=== PATIENT | female | born 1970 | race Caucasian/White ===

== ENCOUNTER 2020-11-05 14:09 | Emergency (ER) | payer OTHER, SELFPAY ==
[2020-11-05 15:03] VITALS: BP 136/83; PULSE 72; RESP 16; TEMP 36.6; O2SAT 97; BMI 23.0
--- NOTE | 2020-11-05 15:06 | ED.BACK ---
HPI - Back Pain/Injury General Chief Complaint: Back Pain/Injury Stated Complaint: back pain, work injury Time Seen by Provider: 11/05/20 15:04 Source: patient Mode of arrival: wheelchair Limitations: no limitations History of Present Illness HPI Narrative: 50 y/o female presenting with acute onset of left lower back pain that started after she lifted heavy object while at work today. She states the pain radiates down the back of her left leg. She took ibuprofen when it happened with no improvement. She describes the pain and sharp and spasm. No numbness, tingling, incontinence. MD elicited complaint: back pain and back injury Onset (ago): hour(s) (6) Timing: constant Severity: severe Similar Symptoms Previously: No Quality: stabbing and spasming Location: left lower back Radiation: left upper leg Exacerbating factors: movement, walking and coughing/sneezing Relieving factors: immobilization Context: while lifting Associated symptoms: denies other symptoms Treatments prior to arrival: NSAIDS Work related injury: Yes Related Data Previous Rx's Medication Instructions Recorded cyclobenzaprine 10 mg PO TID PRN #15 tab 11/05/20 hydrocodone-acetaminophen [Silvis] 1 tab PO Q8H PRN #5 tab 11/05/20 ibuprofen 600 mg PO Q8H PRN #20 tab 11/05/20 lidocaine [Lidoderm] 1 patch TOPICAL DAILY #15 ea 11/05/20 Allergies Allergy/AdvReac Type Severity Reaction Status Date / Time No Known Allergies Allergy Verified 11/05/20 15:13 Review of Systems Review of Systems: Constitutional: No Fever, No Chills Cardiovascular: No Chest Pain, No SOB Respiratory: No Cough, No Sputum Gastrointestinal: No Nausea, No Vomiting, No Diarrhea, No abdominal Pain Genitourinary: No Dysuria, No Urinary Frequency, No Hematuria Musculoskeletal: + joint pain, + Myalgias Skin: No Skin Lesions, No rash Neuro: No Weakness, No Numbness PMFSH Past Medical History Attestation statement: The following information was validated with the patient. Surgical History (Updated 11/05/20 @ 15:06 by Keren Lozano) H/O abdominoplasty H/O breast augmentation Previous section Social History Social History Advance Directives: No Advance Directives Information Provided: Yes Physical Exam Vital Signs: Vital Signs: Last Vital Signs Temp 97.9 F 11/05/20 15:03 Pulse 72 11/05/20 15:03 Resp 16 11/05/20 15:03 BP 136/83 11/05/20 15:03 Pulse Ox 97 11/05/20 15:03 Body Mass Index 23.0 Appearance: Alert. Oriented X3. No acute distress. HEENT: normal inspection CVS: Normal heart rate and rhythm. Pulses normal. Respiratory: No respiratory distress. Skin: Skin warm and dry. Normal skin color. Normal skin turgor. No rashes. Back: left low lumbar area with soft tissue tenderness, SI joint tenderness on the left, no spinal tenderness. limited ROM due to pain. Extremities: atraumatic, no LE edema Neuro: Oriented X 3. No motor deficit. No sensory deficit. Course Course Course Narrative: 50 y/o female with left lower back pain after heavy lifting, likely muscular in nature. No red flag symptoms of LBP, no hx IDVA. Neuro intact. Will get XR and medicate with Toradol, Tylenol and Flexeril. Reevaluation(s) Reevaluation #1: Minor improvement after medications. XR is negative for acute injury. Stable for d/c. MDM - Back Pain/Injury Differential Diagnosis Differential diagnosis: Likely lumbar radiculopathy, sciatica, strain of lumbar region and thoracic back pain Discharge Plan Discharge Clinical Impression: Strain of lumbar region Qualifiers: Encounter type: initial encounter Qualified Code(s): S39.012A - Strain of muscle, fascia and tendon of lower back, initial encounter Patient Disposition: Home, Self-Care Instructions: Low Back Strain (ED), Lower Back Exercises (ED) Additional Instructions: Your x-ray today did not show any traumatic injuries. Use ice to the area several times per day for the next 48 hours and then use heat. Take the prescribed medications as needed for pain. Follow up with your doctor this week. If the pain worsens or if you develop new numbness, tingling, weakness or incontinence come back to the ER for further evaluation. Prescriptions: New cyclobenzaprine 10 mg tablet 10 mg PO TID PRN (Reason: muscle spasm) Qty: 15 RF: 0 ibuprofen 600 mg tablet 600 mg PO Q8H PRN (Reason: pain) Qty: 20 RF: 0 lidocaine [Lidoderm] 5 % adhesive patch,medicated 1 patch topical DAILY Qty: 15 RF: 0 hydrocodone-acetaminophen [Silvis] 5-325 mg tablet 1 tab PO Q8H PRN (Reason: pain) Qty: 5 RF: 0 Referrals: [facility] [Provider Group] - 2 days Stand Alone Forms: Work/School Release Interventions: ED Discharge Assessment Last Done: 11/05/20 16:30 Discharge Date/Time: 11/05/20 16:31
--- NOTE | 2020-11-05 15:15 | XR_ITS ---
EXAMINATION: XR LUMBOSACRAL SPINE CLINICAL INFORMATION: Back pain. COMPARISON: None TECHNIQUE: Three views of the lumbosacral spine. FINDINGS: Normal alignment. Vertebral body heights are maintained. No evidence of acute fracture. Mild disc height narrowing at L5-S1. Mild endplate spurring at L4. Mild spurring from the inferior aspect of bilateral SI joints. No diastasis of the SI joints. Phleboliths in the pelvis. XR/XR lumbar spine 2-3V IMPRESSION: No evidence of acute fracture. Mild L5-S1 disc degeneration.
[2020-11-05] MEDS: Acetaminophen 325 MG TABLET 975 MG PO (15:28)
[2020-11-05] MEDS: Cyclobenzaprine HCl 10 MG TABLET PO (15:28)
[2020-11-05] MEDS: Ketorolac Tromethamine 30 MG/ML VIAL IM (15:29)
== END 2020-11-05 16:31 | disposition home or self-care (01) ==
PROVIDERS: Emergency Provider Emergency Medicine
DX: S39.012A Strain of muscle, fascia and tendon of lower back, initial encounter (principal); X50.0XXA Overexertion from strenuous movement or load, initial encounter; Y93.9 Activity, unspecified; Y92.9 Unspecified place or not applicable; Y99.0 Civilian activity done for income or pay
CPT/HCPCS: 72100; 96372; 99282; 99284; J1885

== ENCOUNTER → 2020-11-07 10:58 | Outpatient (BNVA) | payer OTHER, SELFPAY | PROVIDERS: Visit Provider Physician Assistant Medical | DX: M54.32 Sciatica, left side (principal) | CPT/HCPCS: 99203 ==

== ENCOUNTER → 2020-11-09 14:08 | Outpatient (BNVA) | payer OTHER, SELFPAY | PROVIDERS: Visit Provider Internal Medicine | DX: M54.16 Radiculopathy, lumbar region (principal); M79.605 Pain in left leg | CPT/HCPCS: 99213 ==

== ENCOUNTER → 2020-11-20 12:55 | Outpatient (BNVA) | payer OTHER, SELFPAY | PROVIDERS: Visit Provider Internal Medicine | DX: M54.40 Lumbago with sciatica, unspecified side (principal) | CPT/HCPCS: 99213 ==

== ENCOUNTER → 2020-12-11 14:49 | Outpatient (BNVA) | payer OTHER, SELFPAY | PROVIDERS: Visit Provider Internal Medicine | DX: Z76.89 Persons encountering health services in other specified circumstances (principal) | CPT/HCPCS: 99213 ==

== ENCOUNTER → 2021-01-03 14:20 | Outpatient (BNVA) | payer OTHER, SELFPAY | PROVIDERS: Visit Provider Internal Medicine | DX: M54.40 Lumbago with sciatica, unspecified side (principal) | CPT/HCPCS: 99213 ==

== ENCOUNTER 2021-01-14 15:40 | Outpatient (REF) | payer OTHER, SELFPAY ==
--- NOTE | ~2021-01-14 | MR_ITS ---
EXAMINATION: MR LUMBAR SPINE WITHOUT CONTRAST CLINICAL INFORMATION: 50-year-old with low back pain after work-related incident. COMPARISON: None TECHNIQUE: MRI of the lumbar spine was obtained using routine sequences without contrast. FINDINGS: Coronal Alignment:?Normal. Sagittal Alignment:?Normal. Lumbosacral Junction:?Normal. Vertebral Bodies: Normal height. Bone Marrow: Within normal limits. Conus Medullaris:?Terminates at T12.?Morphology and signal is normal. Intradural Nerve Roots: Within normal limits. L5-S1: Disc space height is well maintained with disc desiccation consistent with disc degenerative change. Minimal broad-based central disc protrusion is noted with central transverse annular fissuring which contacts the S1 nerve root sleeves bilaterally without nerve root compression or displacement. There is no significant spondylosis or facet arthrosis. There is ligamentum flavum thickening and there is no significant canal or neuroforaminal stenosis. L4-L5: Disc space height is well maintained with disc desiccation consistent with disc degenerative change with minor anterolateral spondylosis. Mild broad-based central disc protrusion noted with mild flattening of the central dural sac with mild narrowing of the subarticular zones bilaterally. Mild ligamentum flavum thickening is noted without significant facet arthrosis. No significant central canal or neuroforaminal stenosis. There is mild narrowing of the left subarticular zone. L3-L4: Disc space height is well maintained with normal disc signal. Small central disc protrusion noted with mild flattening of the central dural sac without neural impingement. Minor spondylosis noted with no significant facet arthrosis, canal or neuroforaminal stenosis. L2-L3: Disc space height and signal well maintained without significant disc bulge or herniation and no significant spondylosis, facet arthrosis, canal or neural foraminal stenosis. L1-L2: Disc space height and signal well maintained without significant disc bulge or herniation and no significant spondylosis, facet arthrosis, canal or neural foraminal stenosis. Paraspinal/Retroperitoneal: The visualized paravertebral soft tissues appear unremarkable. MR/MR lumbar spine wo con IMPRESSION: 1. Mild discogenic degenerative changes at L4-L5 and L5-S1 with mild broad-based shallow central disc protrusions with annular fissuring at L4-L5 and L5-S1 with contact of the S1 nerve root sleeves bilaterally and mild narrowing of the left L4-L5 subarticular zone with mild ligamentum flavum thickening at both levels. 2. Small central disc herniation at L3-L4 without neural impingement.
== END 2021-01-14 15:41 | disposition home or self-care (01) ==
LOC: HO.MRI 15:40
PROVIDERS: Visit Provider Internal Medicine
DX: M54.42 Lumbago with sciatica, left side (principal)
CPT/HCPCS: 72148

== ENCOUNTER → 2021-01-17 14:23 | Outpatient (BNVA) | payer OTHER, SELFPAY | PROVIDERS: Visit Provider Internal Medicine | DX: M51.16 Intervertebral disc disorders with radiculopathy, lumbar region (principal) | CPT/HCPCS: 99213 ==

== ENCOUNTER 2021-01-17 16:00 | Outpatient (RCR) | payer OTHER, SELFPAY ==
--- NOTE | 2020-11-26 14:20 | MHC.PT.EP ---
[facility] [place] Office [place] Office [place] Office [address] Marjorie Fiore [address] [phone] F: [phone] F: [phone] F: [phone] F: [phone] Physical Therapy Plan of Care Date of Evaluation: 11/26/20 Date of Surgery: NA Diagnosis: Pt IS 50 YO F REFERRED TO PT FROM (DR ESPINOSA) WITH SCIATICA L (ON MEDR[facility]) Assessment: Pt IS 50 YO F REFERRED TO PT FROM WITH SCIATICA. Pt REPORTS LIFTING A ROLL AT WORK AND FEELING PAIN IN L LB AND L LE. HER LEG SXS HAVE RESOLVED (HAS BEEN ON PAIN MED/ANTIINFLAMMATORIES) BUT CONTINUES WITH L LBP. Pt WITH DECREASED ABD STRENGTH (ALSO REPORTS 2 C SECTIONS AND TUMMY TUCK IN PAST). Pt SHOULD BENEFIT FROM PT TO HELP IMPROVE OVERALL STRENGTH AND FLEXIBILITY AND REV BODY MECH FOR JOB SIM TASKS Frequency and Duration: The patient will be seen 2X/WK X 4 WKS Short Term Goals: 1. INCREASED AWARENESS BACK CARE 2. Pt TO PERF 2-3 TASKS WITH PROPER BODY MECH 3. INCREASE L HS FLEX 5 DEGREES Home Comfort Advisor Goals: 1. TRUNK ROM 75-100% T/O 2. I HEP WITH DC EX PLAN 3. NORMAL DUTY WORK 4. DECREASED BACK PAIN AT LEAST 50% WITH ADLS 5. Pt TO BE ABLE TO SIT UP FROM SUP Treatment Plan: Modalities to reduce pain, spasms and effusion. Manual therapy to restore motion and function. Therapeutic exercise to improve strength and flexibility. Neuromuscular re-education for posture and balance. Therapeutic activities to return to functional activities of daily living. Electronically signed by: SOUMYA TINAJERO PT Please sign and return to therapist. Thank you for your referral.
--- NOTE | 2021-01-24 17:16 | MHC.PT.DC ---
[facility] [place] Office [place] Office [place] Office [address] Marjorie Fiore [address] [phone] F: [phone] F: [phone] F: [phone] F: [phone] Physical Therapy Discharge Report Diagnosis: Pt IS 50 YO F REFERRED TO PT FROM (DR ESPINOSA) WITH SCIATICA L (ON MEDROL) Date of Surgery: NA Date of Evaluation: 11/26/20 Date of Discharge: 01/24/21 Treatments to Date: 10 Cancellations to Date: 4 No Shows to Date: 3 Discharge Status: Visit Non-compliance Discharge Summary: The patient has no showed a total of three appointments, two consecutively. Per [facility] Core Therapy policy, which the patient was aware of and signed, she is being discharged for non-compliance. She was reporting overall feeling better and tolerating higher level core stabilization exercises and functional activities such as lifting. She is discharged from this physical therapy plan of care at this time. Electronically signed by: Catherine Richard PT, DPT Please sign and return to therapist. Thank you for your referral.
== END 2021-01-24 17:17 | disposition other institution (70) ==
LOC: HO.PT 16:00
PROVIDERS: Visit Provider Internal Medicine
DX: M54.32 Sciatica, left side (principal)
CPT/HCPCS: 97110; 97140; 97161; 97164; 97530

== ENCOUNTER → 2021-02-14 14:52 | Outpatient (BNVA) | payer OTHER, SELFPAY | PROVIDERS: Visit Provider Internal Medicine | DX: M51.37 Other intervertebral disc degeneration, lumbosacral region (principal) | CPT/HCPCS: 99214 ==

== ENCOUNTER 2021-04-13 07:18 | Outpatient (REF) | payer OTHER, SELFPAY ==
--- NOTE | ~2021-04-13 | XR_ITS ---
EXAMINATION: XR BILATERAL HAND CLINICAL INFORMATION: Pain and bilateral hand. COMPARISON: None. TECHNIQUE: 3 views each hand. FINDINGS: Left Hand: Minimal loss of PIP and DIP joint spaces are seen. No periarticular spurring or bony erosions. The soft tissues are normal. Right Hip: Minimal loss of PIP and DIP joint space. MCP joint space is preserved. No bony erosive changes or spurring seen. The soft tissues are normal. XR/XR hand RT min 3V IMPRESSION: Minimal loss of PIP and DIP joint spaces, likely early degenerative changes. No visible acute fracture or dislocation.
--- NOTE | ~2021-04-13 | XR_ITS ---
EXAMINATION: XR BILATERAL HAND CLINICAL INFORMATION: Pain and bilateral hand. COMPARISON: None. TECHNIQUE: 3 views each hand. FINDINGS: Left Hand: Minimal loss of PIP and DIP joint spaces are seen. No periarticular spurring or bony erosions. The soft tissues are normal. Right Hip: Minimal loss of PIP and DIP joint space. MCP joint space is preserved. No bony erosive changes or spurring seen. The soft tissues are normal. XR/XR hand LT min 3V IMPRESSION: Minimal loss of PIP and DIP joint spaces, likely early degenerative changes. No visible acute fracture or dislocation.
[2021-04-13 07:58] LABS: Hematocrit 38.2 % (37-47); Hemoglobin 12.2 g/dl (12.0-16.0); Mean Corpuscular HGB Conc 31.9 g/dl (31.0-35.0); Mean Corpuscular Hemoglobin 27.7 pg (27.0-33.0); Mean Corpuscular Volume 86.6 fL (80-98); Mean Platelet Volume 10.7 fL (9.4-12.3); Platelet Count 268 X10*3/uL (160-400); Red Blood Count 4.41 X10*6/uL (4.20-5.50); Red Cell Distribution Width 13.1 % (11.0-16.0); White Blood Count 5.2 X10*3/uL (4.8-10.8)
[2021-04-13 08:26] LABS: Estimated Average Glucose 137 mg/dL; Hemoglobin A1c % 6.4 %
[2021-04-13 08:28] LABS: Alanine Aminotransferase 19 U/L (0-31); Albumin Level 4.2 g/dL (3.5-5.0); Alkaline Phosphatase 59 U/L (39-117); Anion Gap 13 (12-20); Aspartate Amino Transferase 18 U/L (5-31); Bilirubin Total 0.5 mg/dL (0.0-1.0); Blood Urea Nitrogen 14 mg/dL (9-16); Calcium 9.5 mg/dL (8.4-10.2); Carbon Dioxide 25 mmol/L (22-29); Chloride 105 mmol/L (96-108); Cholesterol 251 mg/dL; Estimated Glomerular Filt Rate > 60; Glucose Fasting 140 mg/dL (60-99); HDL Cholesterol 87 mg/dL; LDL Cholesterol Calculated 140 mg/dl; Potassium 4.5 mmol/L (3.3-5.1); Rheumatoid Factor < 15.0 IU/mL (<15.0); Sodium 138 mmol/L (135-145); Total Protein 7.3 g/dL (6.5-8.0); Triglycerides 124 mg/dL
[2021-04-13 09:14] LABS: Erythrocyte Sedimentation Rate 6 MM/HR (0-20)
[2021-04-16 21:22] LABS: Cyclic Citrullinated Peptide <16 UNITS
[2021-04-17 13:56] LABS: Anti Nuclear Antibody Screen NEGATIVE (NEGATIVE)
== END 2021-04-13 07:19 | disposition home or self-care (01) ==
LOC: HO.LAB 07:18
PROVIDERS: PCP Physician Assistant; Visit Provider Physician Assistant
DX: Z13.29 Encounter for screening for other suspected endocrine disorder (principal); Z13.220 Encounter for screening for lipoid disorders; M79.642 Pain in left hand; M79.641 Pain in right hand; I10 Essential (primary) hypertension
CPT/HCPCS: 36415; 73130; 80053; 80061; 83036; 84443; 85027; 85652; 86038; 86039; 86200; 86431

== ENCOUNTER → 2021-04-25 13:44 | Outpatient (BNVA) | payer OTHER, SELFPAY | PROVIDERS: Visit Provider Student in an Organized Health Care Education/Training Program ==

== ENCOUNTER 2021-06-12 08:46 | Outpatient (REF) | payer OTHER, SELFPAY ==
--- NOTE | 2021-06-12 08:48 | EMG_ITS ---
This is a 50-year-old woman with 6 month history of bilateral upper extremity pain, numbness, and tingling. PHYSICAL EXAMINATION: On examination, she is alert and oriented with normal intellectual functions. Cranial nerves II through XII are normal. Muscle tone and strength are normal in all 4 extremities. Deep tendon reflexes symmetrical. No Tinel or Phalen sign. IMPRESSION: Rule out carpal tunnel syndrome. Nerve conduction EMG study: Normal electrodiagnostic study of both upper extremities except for low motor amplitude of the right median nerve. No evidence of carpal tunnel syndrome. Normal EMG of the right C5-T1 innervated muscles. MD CLINTON Curtis/REED / [id number]
== END 2021-06-12 08:47 | disposition home or self-care (01) ==
LOC: HO.NEURO 08:46
PROVIDERS: Visit Provider Student in an Organized Health Care Education/Training Program
DX: R20.0 Anesthesia of skin (principal); R20.2 Paresthesia of skin
CPT/HCPCS: 95885; 95913

== ENCOUNTER 2021-07-02 06:00 | Outpatient (REF) | payer OTHER, SELFPAY ==
[2021-07-02 07:23] LABS: Estimated Average Glucose 137 mg/dL; Hemoglobin A1c % 6.4 %
[2021-07-02 07:38] LABS: Anion Gap 13 (12-20); Blood Urea Nitrogen 12 mg/dL (9-16); Carbon Dioxide 22 mmol/L (22-29); Chloride 106 mmol/L (96-108); Cholesterol 246 mg/dL; Estimated Glomerular Filt Rate > 60; Glucose Fasting 116 mg/dL (60-99); HDL Cholesterol 90 mg/dL; LDL Cholesterol Calculated 136 mg/dl; Potassium 4.3 mmol/L (3.3-5.1); Sodium 137 mmol/L (135-145); Triglycerides 101 mg/dL
== END 2021-07-02 06:01 | disposition home or self-care (01) ==
LOC: HO.LAB 06:00
PROVIDERS: PCP Physician Assistant; Visit Provider Physician Assistant
DX: R73.03 Prediabetes (principal); E78.2 Mixed hyperlipidemia
CPT/HCPCS: 36415; 80048; 80061; 83036

== ENCOUNTER → 2022-10-01 11:20 | Outpatient (BNVA) | payer SELFPAY | PROVIDERS: PCP Physician Assistant; Visit Provider Physician Assistant | DX: M54.32 Sciatica, left side (principal) | CPT/HCPCS: 99215 ==

== ENCOUNTER → 2022-10-10 14:48 | Outpatient (BNVA) | payer SELFPAY | PROVIDERS: PCP Physician Assistant; Visit Provider Physician Assistant | DX: M51.26 Other intervertebral disc displacement, lumbar region (principal) | CPT/HCPCS: 99213 ==

== ENCOUNTER → 2022-10-20 13:55 | Outpatient (BNVA) | payer SELFPAY | PROVIDERS: PCP Physician Assistant; Visit Provider Internal Medicine | DX: M51.26 Other intervertebral disc displacement, lumbar region (principal) | CPT/HCPCS: 99213 ==

== ENCOUNTER → 2022-10-27 13:01 | Outpatient (BNVA) | payer SELFPAY | PROVIDERS: PCP Physician Assistant; Visit Provider Internal Medicine | DX: M51.26 Other intervertebral disc displacement, lumbar region (principal) | CPT/HCPCS: 99213 ==

== ENCOUNTER → 2022-11-11 13:06 | Outpatient (BNVA) | payer SELFPAY | PROVIDERS: PCP Physician Assistant; Visit Provider Internal Medicine | DX: R20.2 Paresthesia of skin (principal) | CPT/HCPCS: 99213 ==

== ENCOUNTER → 2022-11-27 14:48 | Outpatient (BNVA) | payer SELFPAY | PROVIDERS: PCP Physician Assistant; Visit Provider Internal Medicine | DX: M51.16 Intervertebral disc disorders with radiculopathy, lumbar region (principal) | CPT/HCPCS: 99213 ==

== ENCOUNTER → 2022-12-16 13:08 | Outpatient (BNVA) | payer OTHER, SELFPAY | PROVIDERS: PCP Physician Assistant; Visit Provider Internal Medicine | DX: M51.16 Intervertebral disc disorders with radiculopathy, lumbar region (principal); M62.81 Muscle weakness (generalized) | CPT/HCPCS: 99213 ==

== ENCOUNTER → 2022-12-25 15:23 | Outpatient (BNVA) | payer OTHER, SELFPAY | PROVIDERS: PCP Physician Assistant; Visit Provider Internal Medicine | DX: M51.27 Other intervertebral disc displacement, lumbosacral region (principal) | CPT/HCPCS: 99213 ==

== ENCOUNTER → 2023-01-08 14:12 | Outpatient (BNVA) | payer OTHER, SELFPAY | PROVIDERS: PCP Physician Assistant; Visit Provider Internal Medicine | DX: M79.604 Pain in right leg (principal) | CPT/HCPCS: 99213 ==

== ENCOUNTER → 2023-01-29 15:37 | Outpatient (BNVA) | payer OTHER, SELFPAY | PROVIDERS: PCP Physician Assistant; Visit Provider Internal Medicine | DX: Z13.89 Encounter for screening for other disorder (principal) ==

== ENCOUNTER → 2023-01-30 13:18 | Outpatient (BNVA) | payer OTHER, SELFPAY | PROVIDERS: PCP Physician Assistant; Visit Provider Internal Medicine | DX: M51.16 Intervertebral disc disorders with radiculopathy, lumbar region (principal); M54.9 Dorsalgia, unspecified; R10.31 Right lower quadrant pain | CPT/HCPCS: 99213 ==

== ENCOUNTER → 2023-02-27 15:23 | Outpatient (BNVA) | payer OTHER, SELFPAY | PROVIDERS: PCP Physician Assistant; Visit Provider Internal Medicine | DX: Z13.89 Encounter for screening for other disorder (principal) ==

== ENCOUNTER → 2023-03-17 12:59 | Outpatient (BNVA) | payer OTHER, SELFPAY | PROVIDERS: PCP Physician Assistant; Visit Provider Internal Medicine | DX: M54.41 Lumbago with sciatica, right side (principal) | CPT/HCPCS: 99213 ==

== ENCOUNTER → 2023-05-18 13:32 | Outpatient (BNVA) | payer OTHER, SELFPAY | PROVIDERS: PCP Physician Assistant; Visit Provider Internal Medicine | DX: M54.9 Dorsalgia, unspecified (principal); M51.27 Other intervertebral disc displacement, lumbosacral region | CPT/HCPCS: 99213 ==